=== PATIENT | female | born 1960 | race Caucasian/White ===

== ENCOUNTER 2018-04-01 00:58 | Inpatient (IN) | payer BC ==
[~2018-04-01] VITALS: Ht 157.5 cm; Wt 51.8 kg
[~2018-04-01 00:58] MED LIST: ESTR1TAB7 PO; OXYC5TAB3 PO; PRED5TAB PO
[2018-04-01] MEDS ORDERED: DICY10CA3 PO (01:25)
[2018-04-01] MEDS ORDERED: FLUO20CA8 PO (01:25)
[2018-04-01] MEDS ORDERED: LACT1CAP11 PO (01:25)
[2018-04-01 01:28] LABS: MEAN CORPUSCULAR HEMOGLOBIN 30.5 pg (27.0-34.8); MEAN CORPUSCULAR HGB CONC 33.4 g/dL (32.4-35.8); MEAN CORPUSCULAR VOLUME 91.2 fL (80-100); MEAN PLATELET VOLUME 10.1 fL (7.4-10.4); PLATELET COUNT 324 x10^3/uL (130-400); RED BLOOD COUNT 4.95 x10^6/uL (3.82-5.3); RED CELL DISTRIBUTION WIDTH 13.6 % (9.6-15.2)
[2018-04-01] MEDS ORDERED: ONDANSETRON 2MG/ML, 2ML ONE (01:28)
[2018-04-01 01:29] LABS: ALANINE AMINOTRANSFERASE 18 U/L (12-78); ALBUMIN 3.7 g/dL (3.4-5.0); ANION GAP 7 mmol/L (5-15); CALCIUM 9.1 mg/dL (8.5-10.1); CHLORIDE 105 mmol/L (98-107); CREATININE 1.03 mg/dL (0.55-1.02)
[2018-04-01] MEDS ORDERED: MORPHINE SULFATE 4 MG/ML, 1ML ONE (01:29)
[2018-04-01] MEDS ORDERED: MORPHINE SULFATE 4 MG/ML, 1ML IVPush PRN (01:30)
[2018-04-01] MEDS ORDERED: ONDANSETRON 2MG/ML, 2ML IVPush ONE (01:30)
[2018-04-01] MEDS ORDERED: SODIUM CHLORIDE 0.9% 1,000ML IVBOLUS ONE (01:30)
[2018-04-01] MEDS ORDERED: SODIUM CHLORIDE FLUSH 10ML SYR IVF ONE (01:30)
[2018-04-01 01:31] LABS: ALKALINE PHOSPHATASE 119 U/L (45-117); BILIRUBIN,TOTAL 0.2 mg/dL (0.2-1.0); TOTAL PROTEIN 7.7 g/dL (6.4-8.2)
[2018-04-01 01:41] LABS: CLOSTRIDIUM DIFFICILE ANTIGEN NEGATIVE; CLOSTRIDIUM DIFFICILE TOXIN NEGATIVE (Negative)
[2018-04-01 02:08] LABS: BASOPHILS # (AUTO) 0.05 x10^3/uL (0-0.1); BASOPHILS % (AUTO) 0 % (0-1); EOSINOPHILS % (AUTO) 1 % (1-7); LYMPHOCYTES % (AUTO) 10 % (22-44); MD SCAN; MONOCYTES # (AUTO) 0.54 x10^3/uL (0.2-0.8); MONOCYTES % (AUTO) 2 % (2-9); NEUTROPHILS % (AUTO) 87 % (42-75)
[2018-04-01] MEDS ORDERED: OMNIPAQUE 350 MG/ML, 100ML BOTTLE ONE (02:11)
[2018-04-01] MEDS ORDERED: ONDANSETRON 2MG/ML, 2ML IVPush PRN (03:30)
[2018-04-01] MEDS ORDERED: DOCUSATE 100 MG CAPSULE PO PRN (03:30)
[2018-04-01] MEDS ORDERED: ONDANSETRON ODT 4 MG PO PRN (03:30)
[2018-04-01] MEDS ORDERED: hydrALAzine 20 MG/ML, 1ML IVPush PRN (03:30)
[2018-04-01] MEDS ORDERED: PROMETHAZINE 25 MG/ML, 1ML IM PRN (03:30)
[2018-04-01] MEDS ORDERED: ACETAMINOPHEN 325 MG TABLET PO PRN (03:30)
[2018-04-01] MEDS ORDERED: methylPREDNISolone SOD SUCC 40 MG/ML IV SCH (03:30)
[2018-04-01] MEDS ORDERED: POLYETHYLENE GLYCOL 17 GM PACKET PO PRN (03:30)
[2018-04-01 03:31] LABS: HCT (SEDRATE) 45.1 % (34.6-47.8)
[2018-04-01 03:38] LABS: C-REACTIVE PROTEIN, QUANT 0.61 mg/dL (0.02-0.49)
[2018-04-01 03:44] VITALS: BP 97/62
[2018-04-01 03:45] LABS: HEMOGLOBIN A1C 5.5 % (4.2-6.3)
[2018-04-01 03:48] LABS: FREE T4 (FREE THYROXINE) 0.98 ng/dL (0.76-1.46); THYROID STIMULATING HORMONE 7.74 mIU/L (0.358-3.740)
[2018-04-01] MEDS: HEPARIN 5,000 UNITS/ML, 1ML SQ SCH ×3 (04:24→20:28)
[2018-04-01] MEDS: morphine SULFATE 10 MG/ML, 1ML IVPush PRN ×2 (04:25→16:59)
[2018-04-01] MEDS: NICOTINE 14MG/24 HR PATCH.TD24 TD SCH (04:26)
[2018-04-01] MEDS: SODIUM CHLORIDE 0.9% 1,000 ML IV SCH ×3 (04:26→20:29)
[2018-04-01 08:34] VITALS: BP 98/50
[2018-04-01] MEDS ORDERED: ESTROGENS CONJUGATED 0.625 MG TABLET PO SCH (09:00)
[2018-04-01] MEDS: ESTROGENS CONJUGATED 0.625 MG TABLET PO SCH (09:50)
[2018-04-01] MEDS: DICYCLOMINE 10 MG CAPSULE PO SCH ×2 (09:51→20:28)
[2018-04-01] MEDS: FLUOXETINE HCL 20 MG CAPSULE PO SCH (09:51)
[2018-04-01] MEDS: MEDROXYPROGESTERONE ACETATE 2.5 MG TABLET PO SCH (09:52)
[2018-04-01] MEDS: LACTOBACILLUS 1GM/ PACKET PO SCH (10:01)
[2018-04-01 10:46] LABS: MICROSCOPIC NOT IND
[2018-04-01 10:49] LABS: CULTURE INDICATED? NO
[2018-04-01] MEDS: OXYcodone IR 5MG TABLET PO PRN ×2 (11:36→20:26)
[2018-04-01 13:21] VITALS: BP 104/65
[2018-04-01 19:22] VITALS: BP 87/50
[2018-04-02 01:47] VITALS: BP 92/51
[2018-04-02] MEDS: NICOTINE 14MG/24 HR PATCH.TD24 TD SCH (03:30)
[2018-04-02] MEDS: SODIUM CHLORIDE 0.9% 1,000 ML IV SCH (03:48)
[2018-04-02] MEDS: HEPARIN 5,000 UNITS/ML, 1ML SQ SCH ×2 (03:49→11:30)
[2018-04-02 04:56] LABS: BASOPHILS # (AUTO) 0.02 x10^3/uL (0-0.1); BASOPHILS % (AUTO) 0 % (0-1); EOSINOPHILS # (AUTO) 0.01 x10^3/uL (0-0.4); EOSINOPHILS % (AUTO) 0 % (1-7); LYMPHOCYTES # (AUTO) 1.75 x10^3/uL (1-3.4); LYMPHOCYTES % (AUTO) 13 % (22-44); MD NO; MEAN CORPUSCULAR HEMOGLOBIN 30.5 pg (27.0-34.8); MEAN CORPUSCULAR HGB CONC 32.8 g/dL (32.4-35.8); MEAN CORPUSCULAR VOLUME 93.2 fL (80-100); MEAN PLATELET VOLUME 10.4 fL (7.4-10.4); MONOCYTES # (AUTO) 0.53 x10^3/uL (0.2-0.8); MONOCYTES % (AUTO) 4 % (2-9); NEUTROPHILS # (AUTO) 11.66 x10^3/uL (1.8-6.8); NEUTROPHILS % (AUTO) 84 % (42-75); PLATELET COUNT 229 x10^3/uL (130-400); RED BLOOD COUNT 3.75 x10^6/uL (3.82-5.3); RED CELL DISTRIBUTION WIDTH 13.8 % (9.6-15.2)
[2018-04-02 05:05] LABS: CHLORIDE 111 mmol/L (98-107)
[2018-04-02 05:19] LABS: ALANINE AMINOTRANSFERASE 14 U/L (12-78); ALBUMIN 2.7 g/dL (3.4-5.0); ALKALINE PHOSPHATASE 82 U/L (45-117); ANION GAP 7 mmol/L (5-15); BILIRUBIN,TOTAL 0.2 mg/dL (0.2-1.0); CALCIUM 7.6 mg/dL (8.5-10.1); CHOL/HDL RATIO 3.6; CHOLESTEROL, TOTAL 178 mg/dL (140-239); CREATININE 0.82 mg/dL (0.55-1.02); HDL CHOL % 28 % (28-40); HDL CHOLESTEROL (DIRECT) 49 mg/dL (40-60); LDL CHOLESTEROL,CALCULATED 94 mg/dL (54-169); LDL/HDL RATIO 1.9 (0.5-3.0); TOTAL PROTEIN 5.9 g/dL (6.4-8.2); TRIGLYCERIDES 174 mg/dL (50-200); VLDL CHOLESTEROL 35 mg/dL (0-25)
[2018-04-02 07:55] VITALS: BP 127/75
[2018-04-02] MEDS: LACTOBACILLUS 1GM/ PACKET PO SCH (09:07)
[2018-04-02] MEDS: FLUOXETINE HCL 20 MG CAPSULE PO SCH (09:07)
[2018-04-02] MEDS: MEDROXYPROGESTERONE ACETATE 2.5 MG TABLET PO SCH (09:07)
[2018-04-02] MEDS: DICYCLOMINE 10 MG CAPSULE PO SCH (09:07)
[2018-04-02] MEDS: ESTROGENS CONJUGATED 0.625 MG TABLET PO SCH (09:07)
[2018-04-02 13:21] VITALS: BP 130/75
[2018-04-02] MEDS ORDERED: PRED5TAB PO (17:16)
[2018-04-02] MEDS ORDERED: DOCU-131 PO (17:16)
[2018-04-02] MEDS ORDERED: ACET325T14 PO (17:16)
== END 2018-04-02 18:49 | disposition home or self-care (01) | DRG 385 ==
LOC: ED 01:16 → EDIP 02:24 → 3NE 03:26
PROVIDERS: ADMIT Internal Medicine; ATTEND Internal Medicine
DX: K50.90 Crohn's disease, unspecified, without complications (principal); N17.0 Acute kidney failure with tubular necrosis; R17 Unspecified jaundice; E86.0 Dehydration; F32.9 Major depressive disorder, single episode, unspecified; F17.210 Nicotine dependence, cigarettes, uncomplicated; I10 Essential (primary) hypertension; Z88.0 Allergy status to penicillin; Z98.51 Tubal ligation status; Z71.6 Tobacco abuse counseling
CPT/HCPCS: 36415; 74177; 80053; 80061; 81003; 83036; 83690; 83735; 84439; 84443; 85025; 85651; 86140; 87040; 87324; 89055; J1644; J2405; Q9967; J2270; J2920; J7030; J7512

== ENCOUNTER 2018-09-25 19:45 | Observation (INO) | payer BC ==
[~2018-09-25] VITALS: Ht 157.5 cm; Wt 49.5 kg
[~2018-09-25 19:45] MED LIST changes: +ACET325T14 PO; +DICY10CA3 PO; +DOCU-131 PO; +FLUO20CA8 PO; +LACT1CAP11 PO
[2018-09-25 20:13] LABS: BASOPHILS # (AUTO) 0.05 x10^3/uL (0-0.1); BASOPHILS % (AUTO) 0 % (0-1); EOSINOPHILS # (AUTO) 0.19 x10^3/uL (0-0.4); EOSINOPHILS % (AUTO) 2 % (1-7); LYMPHOCYTES # (AUTO) 4.22 x10^3/uL (1-3.4); LYMPHOCYTES % (AUTO) 40 % (22-44); MD NO; MEAN CORPUSCULAR HEMOGLOBIN 30.9 pg (27.0-34.8); MEAN CORPUSCULAR VOLUME 90.8 fL (80-100); MEAN PLATELET VOLUME 9.3 fL (7.4-10.4); MONOCYTES # (AUTO) 0.58 x10^3/uL (0.2-0.8); MONOCYTES % (AUTO) 6 % (2-9); NEUTROPHILS # (AUTO) 5.54 x10^3/uL (1.8-6.8); NEUTROPHILS % (AUTO) 52 % (42-75); PLATELET COUNT 301 x10^3/uL (130-400); RED BLOOD COUNT 4.73 x10^6/uL (3.82-5.3)
--- NOTE | 2018-09-25 20:18 | NUR ---
PT ARRIVES TO ED WITH C/O NEW ONSET CHEST PAIN X 1 DAY. PT REPORTS THAT THE CHEST PAIN STARTED AT WORK. PT DESCRIBED THE CP A PRESSURE AND SQUEEZING PAIN. PT REPORTS THE PAIN RADIATED TO HER BACK. PT REPORTS THE PAIN AT A 9/10 AT THIS TIME. PT ALSO REPORTS THAT WHILE AT WORK IT GOT SO BAD THAT SHE ALMOST THREW UP. PT CONNECTED TO ALL MONITORS AND CALL LIGHT IN REACH. AWAITING FURTHER ORDERS. NITRO REQUESTED FROM .
[2018-09-25] MEDS ORDERED: NITROGLYCERIN SINGLE TAB 0.4 MG SL ONE (20:21)
[2018-09-25 20:23] LABS: ALBUMIN 3.9 g/dL (3.4-5.0); ANION GAP 3 mmol/L (5-15); CALCIUM 8.4 mg/dL (8.5-10.1); CHLORIDE 105 mmol/L (98-107)
[2018-09-25 20:27] LABS: TROPONIN I < 0.015 ng/mL (0.000-0.045)
--- NOTE | 2018-09-25 20:27 | NUR ---
PROVIDER TO BEDSIDE.
[2018-09-25] MEDS ORDERED: MORPHINE SULFATE 4 MG/ML, 1ML IVPush PRN (20:30)
[2018-09-25] MEDS ORDERED: NITROGLYCERIN SINGLE TAB 0.4 MG SL PRN (20:30)
[2018-09-25] MEDS ORDERED: ONDANSETRON 2MG/ML, 2ML IVPush ONE (20:30)
--- NOTE | 2018-09-25 20:47 | NUR ---
PIV PLACED. PT REPORTS IMPROVED PAIN WITH NITRO TAB.
--- NOTE | 2018-09-25 21:46 | NUR ---
REPORT TO MINOO
--- NOTE | 2018-09-25 21:59 | NUR ---
PT RESTING IN BED. NOT REQUESTING ADDITIONAL PAIN CONTROL FOR CHEST PAIN.
[2018-09-25] MEDS ORDERED: ONDANSETRON 2MG/ML, 2ML IVPush PRN (22:30)
[2018-09-25] MEDS ORDERED: ACETAMINOPHEN 325 MG TABLET PO PRN (22:30)
[2018-09-25] MEDS ORDERED: DOCUSATE 100 MG CAPSULE PO PRN (22:30)
[2018-09-25] MEDS ORDERED: morphine SULFATE 10 MG/ML, 1ML IVPush PRN (22:30)
[2018-09-25] MEDS ORDERED: POTASSIUM CHLORIDE 20 MEQ TAB.ER.PRT PO ONE (22:30)
[2018-09-25] MEDS ORDERED: hydrALAzine 20 MG/ML, 1ML IVPush PRN (22:30)
--- NOTE | 2018-09-25 23:15 | NUR ---
PT TO [facility] PT REPORT TO PALAK PARR.
[2018-09-25 23:29] VITALS: BP 171/82
[2018-09-25 23:47] VITALS: BP 163/81
[2018-09-26 01:20] LABS: TROPONIN I < 0.015 ng/mL (0.000-0.045)
[2018-09-26 02:08] VITALS: BP 130/72
[2018-09-26 03:48] LABS: TROPONIN I < 0.015 ng/mL (0.000-0.045)
[2018-09-26 06:04] LABS: BASOPHILS # (AUTO) 0.03 x10^3/uL (0-0.1); BASOPHILS % (AUTO) 0 % (0-1); EOSINOPHILS # (AUTO) 0.24 x10^3/uL (0-0.4); EOSINOPHILS % (AUTO) 2 % (1-7); LYMPHOCYTES # (AUTO) 4.28 x10^3/uL (1-3.4); LYMPHOCYTES % (AUTO) 42 % (22-44); MD NO; MEAN CORPUSCULAR HEMOGLOBIN 30.9 pg (27.0-34.8); MEAN CORPUSCULAR HGB CONC 33.8 g/dL (32.4-35.8); MEAN CORPUSCULAR VOLUME 91.3 fL (80-100); MEAN PLATELET VOLUME 9.7 fL (7.4-10.4); MONOCYTES # (AUTO) 0.55 x10^3/uL (0.2-0.8); MONOCYTES % (AUTO) 5 % (2-9); NEUTROPHILS # (AUTO) 5.16 x10^3/uL (1.8-6.8); NEUTROPHILS % (AUTO) 50 % (42-75); PLATELET COUNT 261 x10^3/uL (130-400); RED BLOOD COUNT 4.33 x10^6/uL (3.82-5.3); RED CELL DISTRIBUTION WIDTH 14.1 % (9.6-15.2)
[2018-09-26 06:16] LABS: ANION GAP 7 mmol/L (5-15); CALCIUM 7.7 mg/dL (8.5-10.1); CHLORIDE 108 mmol/L (98-107)
[2018-09-26 06:21] LABS: CHOL/HDL RATIO 4.4; CHOLESTEROL, TOTAL 275 mg/dL (140-239); CREATININE 0.75 mg/dL (0.55-1.02); HDL CHOL % 23 % (28-40); HDL CHOLESTEROL (DIRECT) 63 mg/dL (40-60); LDL CHOLESTEROL,CALCULATED 182 mg/dL (54-169); LDL/HDL RATIO 2.9 (0.5-3.0); TRIGLYCERIDES 150 mg/dL (50-200); VLDL CHOLESTEROL 30 mg/dL (0-25)
[2018-09-26] MEDS ORDERED: REGADENOSON 0.4 MG/5 ML SYRINGE ONE (08:01)
[2018-09-26 10:02] VITALS: BP 122/65
[2018-09-26 13:03] VITALS: BP 116/67
[2018-09-26] MEDS ORDERED: ATOR40TA78 PO (14:51)
[2018-09-26] MEDS ORDERED: ASPI-430 PO (14:51)
[2018-09-26] MEDS ORDERED: ATORVASTATIN 40 MG TABLET PO SCH (21:00)
== END 2018-09-26 16:39 | disposition home or self-care (01) ==
LOC: ED 21:33 → EDIP 22:06 → 5SO 23:16 → DCLOUNGE 09-26 16:35
PROVIDERS: ADMIT Internal Medicine; ATTEND Internal Medicine
DX: R07.2 Precordial pain (principal); F32.9 Major depressive disorder, single episode, unspecified; K50.90 Crohn's disease, unspecified, without complications; E87.6 Hypokalemia; E78.5 Hyperlipidemia, unspecified; F17.210 Nicotine dependence, cigarettes, uncomplicated; I10 Essential (primary) hypertension; Z82.49 Family history of ischemic heart disease and other diseases of the circulatory system
CPT/HCPCS: 36415; 71045; 78452; 80048; 80061; 82040; 83735; 84484; 85025; 85379; 93005; 93017; 96374; 99284; A9502; C9898; G0378; J2270; J2785

== ENCOUNTER 2019-07-23 07:41 | Outpatient (CLI) | payer BC ==
[~2019-07-23 07:41] MED LIST changes: +ASPI-430 PO; +ATOR40TA78 PO
== END 2019-07-23 23:59 | disposition home or self-care (01) ==
LOC: CFH 07:41
PROVIDERS: ATTEND Nurse Practitioner Family
DX: Z12.31 Encounter for screening mammogram for malignant neoplasm of breast (principal); R07.9 Chest pain, unspecified; R06.02 Shortness of breath; R63.4 Abnormal weight loss; Z72.0 Tobacco use
CPT/HCPCS: 71250; 77067

== ENCOUNTER → 2020-05-20 | Outpatient (CLI) | payer BC ==
[~2020-05-20] MED LIST changes: +FLUO20CA23 PO; -FLUO20CA8 PO; +None at this Time
== END | disposition home or self-care (01) ==
LOC: STAR 12:56
PROVIDERS: ATTEND Obstetrics & Gynecology Female Pelvic Medicine and Reconstructive Surgery
DX: Z01.818 Encounter for other preprocedural examination (principal); Z11.59 Encounter for screening for other viral diseases; R10.2 Pelvic and perineal pain; N95.0 Postmenopausal bleeding; N81.10 Cystocele, unspecified; N81.6 Rectocele; N39.3 Stress incontinence (female) (male)
CPT/HCPCS: 36415; 87635

== ENCOUNTER 2020-05-24 08:05 | Day surgery (SDC) | payer BC ==
[~2020-05-24] VITALS: Ht 157.5 cm; Wt 44.8 kg
[~2020-05-24 08:05] MED LIST changes: +BUPIVACAINE/PF 0.25% ONE; +GENTAMICIN 80 MG/2 ML ONE; +VANCOMYCIN 500 MG ONE
[2020-05-24] MEDS ORDERED: LACTATED RINGERS 1,000 ML IV SCH (08:44)
[2020-05-24] MEDS ORDERED: CHLORHEXIDINE 15 ML UDC MM STA (08:44)
[2020-05-24] MEDS ORDERED: LIDOCAINE-MPF 1%, 2ML INFIL STA (08:44)
[2020-05-24 08:45] VITALS: BP 130/77
[2020-05-24] MEDS ORDERED: FENTANYL PF 100 MCG/2ML ONE ×2 (09:30→14:06)
[2020-05-24] MEDS ORDERED: MIDAZOLAM 1 MG/ML, 2ML ONE (09:30)
[2020-05-24] MEDS ORDERED: PROPOFOL 10 MG/ML, 20ML ONE (09:31)
[2020-05-24] MEDS ORDERED: ONDANSETRON 2MG/ML, 2ML ONE (09:31)
[2020-05-24] MEDS ORDERED: DEXAMETHASONE 4 MG/ML, 1ML ONE ×2 (09:31)
[2020-05-24] MEDS ORDERED: LIDOCAINE-MPF 2% ,5ML ONE (09:31)
[2020-05-24] MEDS ORDERED: CEFAZOLIN 1,000 MG ONE ×2 (09:32)
[2020-05-24] MEDS ORDERED: KETOROLAC 30 MG/1 ML ONE (09:32)
[2020-05-24] MEDS ORDERED: ROCURONIUM 10MG/ML,5ML ONE (09:32)
[2020-05-24 10:08] LABS: HCG UR SG 1.024 (1.003-1.030)
[2020-05-24] MEDS ORDERED: NEOSTIGMINE 1 MG/ML, 10ML ONE (11:54)
[2020-05-24] MEDS ORDERED: GLYCOPYRROLATE 0.2MG/1ML, 5ML ONE (11:54)
[2020-05-24] MEDS ORDERED: MEPERIDINE/PF 25MG/0.5ML IVPush PRN (12:30)
[2020-05-24] MEDS ORDERED: OXYcodone 5 MG/5 ML ORAL.SOL UDC PO PRN (12:30)
[2020-05-24] MEDS ORDERED: LABETALOL 5MG/ML, 20ML IV PRN (12:30)
[2020-05-24] MEDS ORDERED: HYDROmorphone 1 MG/ML, 1ML INJ IVPush PRN (12:30)
[2020-05-24] MEDS ORDERED: ACETAMINOPHEN 325 MG TABLET PO PRN (12:30)
[2020-05-24] MEDS ORDERED: hydrALAzine 20 MG/ML, 1ML IV PRN (12:30)
[2020-05-24] MEDS ORDERED: DIAZEPAM 5 MG/ML, 2ML IVPush PRN (12:30)
[2020-05-24] MEDS ORDERED: ONDANSETRON 2MG/ML, 2ML IVPush PRN (12:30)
[2020-05-24] MEDS ORDERED: DIPHENHYDRAMINE 50 MG/ML, 1ML IVPush PRN (12:30)
[2020-05-24] MEDS ORDERED: PROMETHAZINE 25 MG/ML, 1ML IVPush PRN (12:30)
[2020-05-24] MEDS ORDERED: MEPERIDINE/PF 25MG/ML,1ML ONE (13:52)
[2020-05-24] MEDS ORDERED: OXYcodone 5 MG/5 ML ORAL.SOL UDC ONE (13:52)
[2020-05-24] MEDS: FENTANYL PF 100 MCG/2ML IV PRN ×2 (14:09→14:29)
== END 2020-05-24 17:35 | disposition home or self-care (01) ==
LOC: OUT 08:05
PROVIDERS: ATTEND Obstetrics & Gynecology Female Pelvic Medicine and Reconstructive Surgery
DX: N95.0 Postmenopausal bleeding (principal); N81.2 Incomplete uterovaginal prolapse; N94.10 Unspecified dyspareunia; N81.89 Other female genital prolapse; N39.46 Mixed incontinence; N84.0 Polyp of corpus uteri; R10.2 Pelvic and perineal pain; K50.90 Crohn's disease, unspecified, without complications; K52.9 Noninfective gastroenteritis and colitis, unspecified; F17.210 Nicotine dependence, cigarettes, uncomplicated; Z88.0 Allergy status to penicillin
CPT/HCPCS: 57265; 57282; 57288; 58552; 81025; 84702; 88307; C1771; J0690; J1100; J1580; J1885; J2175; J2250; J2405; J2704; J2710; J3010; J3370; J3490; J7120; 36415; 84703